=== PATIENT | female | born 1940 | race Caucasian/White ===

== ENCOUNTER → 2016-10-16 | Day surgery (SDC) | payer OTHER ==
[~2016-10-16] MED LIST: ACET-1256 PO; ADVIN10/60 INH; ALL180 PO; ASCA500 PO; CMD5 PO; CORAL CALCIUM PO; DTR5 PO; LEVAAER2; LISI20TA55 PO; MULT-506 PO; PXL20 PO; [UNRECOGNIZED DRUG - OTHER]
== END | disposition home or self-care (01) ==
LOC: C.ACU 13:44
PROVIDERS: ATTEND Nurse Practitioner
DX: Z71.89 Other specified counseling (principal)